=== PATIENT | female | born 1960 | race Caucasian/White ===

== ENCOUNTER → 2018-06-08 07:34 | Outpatient (CLI) | payer OTHER, SELFPAY ==
[2018-06-08 09:09] LABS: Alanine Aminotransferase 19 IU/L (9-52); Albumin 4.3 g/dL (3.5-5.0); Albumin Globulin Ratio 1.5 (1.0-2.8); Alkaline Phosphatase 60 U/L (38-126); Aspartate Aminotransferase 23 IU/L (14-36); BUN Creatinine Ratio 16.7 (6-22); Bilirubin Total 0.6 mg/dL (0.2-1.3); Blood Urea Nitrogen 10 mg/dL (7-17); Calcium 9.3 mg/dL (8.4-10.2); Carbon Dioxide 25 mmol/L (22-32); Chloride 105 mmol/L (98-107); Cholesterol 251 mg/dL (140-199); Estimated Glomerular Filt Rate > 60.0 mL/min (>60); Globulin 2.8 g/dL (1.7-4.1); Glucose 95 mg/dL (70-100); HDL Cholesterol 68 mg/dL (40-60); HEMOLYSIS < 15 (0-50); LDL Cholesterol Calculated 162 mg/dL (<100); Sodium 141 mmol/L (137-145); Total Protein 7.1 g/dL (6.3-8.2); Triglycerides 106 mg/dL (35-150)
[2018-06-08 15:45] LABS: Creatinine Urine Random 51.4 mg/dL
[2018-06-08 15:49] LABS: Microalbumi Creatinin Ratio Ur 11.6 ug/mg CR (<30); Microalbumin Urine Random < 0.6 mg/dL (0-1.6)
== END ==
PROVIDERS: PCP Physician Assistant; Visit Provider Physician Assistant
DX: I10 Essential (primary) hypertension (principal); E78.5 Hyperlipidemia, unspecified
CPT/HCPCS: 36415; 80053; 80061; 82043; 82570

== ENCOUNTER → 2018-08-19 12:07 | Outpatient (CLI) | payer OTHER, SELFPAY | PROVIDERS: PCP Physician Assistant | DX: Z23 Encounter for immunization (principal) | CPT/HCPCS: 90471; 90686 ==

== ENCOUNTER → 2018-08-26 07:57 | Outpatient (CLI) | payer OTHER, SELFPAY ==
[2018-08-26 09:46] LABS: Aspartate Aminotransferase 28 IU/L (14-36); Cholesterol 186 mg/dL (140-199); HDL Cholesterol 85 mg/dL (40-60); LDL Cholesterol Calculated 82 mg/dL (<100); Triglycerides 93 mg/dL (35-150)
== END ==
PROVIDERS: PCP Physician Assistant; Visit Provider Physician Assistant
DX: E78.5 Hyperlipidemia, unspecified (principal); Z82.49 Family history of ischemic heart disease and other diseases of the circulatory system
CPT/HCPCS: 36415; 80061; 81003; 84450

== ENCOUNTER 2018-10-07 06:53 | Day surgery (SDC) | payer OTHER, SELFPAY ==
--- NOTE | 2018-10-07 | PATH_ITS ---
[facility] Accession Number: [id number] . 01 Material submitted: . PART A: 70CM PART B: POLYP AT 60 . 01 Clinical history: . A: MUCOSAL IRREGULARITY AT 70CM . 02 Diagnosis: A. Colon, 70 cm, Irregularity, Biopsy: Tubular adenoma. . B. Colon, Polyp at 60 cm, Biopsy: Benign lymphoid aggregate. MRV/10/11/2018 . 02 Electronically signed: . Hilary Rizzo MD, Pathologist NPI- [id number] . 01 Gross description: . Received two formalin-filled containers both labeled with the patient's name. . A. In a container labeled mucosal irregularity at 70 cm are multiple fragments of tissue, which range in size from less than 0.1 cm to 0.5 cm. The specimen is filtered, wrapped and entirely submitted in cassette A. B. In a container labeled polyp at 60, source confirmed per client, the specimen consists of a less than 0.1 cm portion of tissue. Entirely submitted in cassette B. ([facility]:[id number]) /[facility] . 02 Pathologist provided ICD-10: D12.6 . 02 CPT . 584080, 195456 Specimen Comment: A duplicate report has been generated due to demographic updates. Performed at: 01 [facility] [address], [place], [place] [id number] MD Vivek Hicks MD Phone: [phone] Performed at: 02 [facility] [address] [place], [place] [id number] MD Hilary Rizzo MD Phone: [phone]
[2018-10-07 07:07] VITALS: BMI 28.0
[2018-10-07] MEDS: SODIUM CHLORIDE 0.9% 1,000 ML 21 ML IV (07:53)
[2018-10-07] MEDS: MIDAZOLAM 5 MG/5 ML VIAL IV (08:11)
[2018-10-07] MEDS: fentaNYL 250 MCG/5 ML INJ IV (08:13)
[2018-10-07 08:33] VITALS: BP 121/83; PULSE 66; RESP 10; O2SAT 96
--- NOTE | 2018-10-07 08:33 | PM.HP.1 ---
History of Present Illness Date Patient Seen: 10/07/18 Time Patient Seen: 07:33 Chief complaint: [id number] SCREENING COLONOSCOPY Narrative: 58-year-old lady presents for screening colonoscopy. She reports her last colonoscopy was 2006. She denies any new problems or symptoms related to the function of her GI tract reports that she needs a colonoscopy as part of the Health maintenance program. Patient History Medical History Hypertension (Chronic ~2014) Rosacea (Chronic Unknown) Colon polyps (Resolved 07/2006) Surgical History History of back surgery (Resolved Unknown) Hx of section (Resolved Unknown) History of tonsillectomy Family & Social History Family History: Reviewed 10/07/18 by Brittney Figueroa MD Social History: household members friend(s) Tobacco & Substance use: Smoking Status Never smoker alcohol intake current Meds Home Medications Medication Instructions Recorded Confirmed Type metoprolol succinate ER 50 mg 50 mg PO QDAY #90 tab 06/16/18 10/07/18 Rx tablet,extended release 24 hr atorvastatin 20 mg PO BEDTIME 10/07/18 10/07/18 History multivitamin 1 cap PO DAILY 10/07/18 10/07/18 History Allergies Allergy/AdvReac Type Severity Reaction Status Date / Time meperidine [MEPERIDINE] AdvReac Mild (DEMEROL) Verified 10/07/18 07:04 VOMITING Review of Systems Review of Systems All systems reviewed & are unremarkable except as noted in HPI and below Exam Vital Signs (past 8 hours): A pleasant well-nourished well-developed lady in no distress HEENT: Normocephalic and atraumatic, pupils equal round reactive to light accommodation with anicteric sclera Lungs: Clear bilaterally Heart: Regular rate and rhythm Abdomen: Soft, nontender, active bowel sounds Extremities: Warm and well-perfused without edema. Assessment & Plan Plan: Assessment/Plan Narrative: Healthy 58-year-old lady who presents for screening colonoscopy. We discussed the risks and benefits of the procedure the patient expressed desire to complete it today
--- NOTE | 2018-10-07 08:34 | PM.OP.1 ---
Operative Date/Time/Diagnoses Date of procedure: 10/07/18 Time of procedure: 08:35 Pre-op diagnosis: Screening Post-op diagnosis: same Procedure & Clinicians Procedure: Colonoscopy to the cecum with polypectomy x2 Same procedure as scheduled: Yes Indications: Last colonoscopy 2006 Surgeon: Brittney Figueroa Anesthesia Type: Sedation (Versed 6 mg; fentanyl 200 mcg) Operative Notes Findings: 1. Excellent prep 2. Flat polypoid lesion at 70 cm from the anal verge. One and 1/2 cm in diameter. The entire lesion was removed with cold forceps and submitted for pathology. The area was marked with [place] ink for later surveillance. 3. A 2nd flat polypoid lesion at 60 cm from the anal verge. This 1 was only approximately 4 mm in diameter and removed with cold forceps. 4. Minimal diverticulosis with just a few very small pockets seen in the sigmoid colon 5. Grade 2-3 internal hemorrhoids 6. Significantly decreased anal sphincter tone. Closure Type: not applicable Specimen(s): other (Polyps from 70 cm and 60 cm) Estimated Blood Loss (mL): 2 Procedure in detail: After obtaining informed consent, the patient was brought to the GI suite and placed in the left lateral decubitus position on the examination table. After placement of appropriate monitors, the patient was given incremental doses of Versed and Fentanyl until an appropriate level of sedation was achieved. A time out was held per SCOAP protocol. A digital rectal examination was performed and did not reveal any masses or obstructing lesions. The colonoscope was gently passed into the patient's anus and the entire colon navigated to the level of the cecum with minimal difficulty. Once in the cecum, the scope was withdrawn being sure to go before and beyond all mucosal folds and prominences and get an excellent examination. The findings are noted above. At the level of the rectal vault, the scope was retroflexed and the internal anal canal was examined. The scope was straightened and air aspirated from the colon. The instrument was removed from the patient's body and the procedure was concluded. The patient was allowed to awaken from sedation without difficulty and taken to the post-anesthesia care unit in good condition. Total sedation time 30 min Total withdrawal time 22 min Complications: none Condition: stable Disposition: PACU Plan for aftercare: 1. Discharge to home 2. Plan for next colonoscopy in 1-5 years depending upon pathology 3. We will contact you with final pathology results and further recommendations.
[2018-10-07 08:37] VITALS: PULSE 72; RESP 13; TEMP 36.2; O2SAT 99
[2018-10-07 08:44] VITALS: BP 113/79; PULSE 72; RESP 15; TEMP 36.6; O2SAT 100
--- NOTE | 2018-10-07 08:45 | SUR.PHASEI ---
stable pacu stay, to opd dr salomn spoke with shari at bedside.
[2018-10-07 09:04] VITALS: BP 118/70; PULSE 77; RESP 16; TEMP 36.6; O2SAT 99
--- NOTE | 2018-10-07 09:06 | SUR.PHASEII ---
called, report to eddie padilla.
[2018-10-07 09:16] VITALS: BP 117/80; PULSE 75; RESP 12; TEMP 36.8; O2SAT 100
== END 2018-10-07 09:26 | disposition home or self-care (01) ==
PROVIDERS: PCP Physician Assistant; Visit Provider Surgery
PROC: 0DJD8ZZ Inspection of Lower Intestinal Tract, Via Natural or Artificial Opening Endoscopic (ICD-10-PCS; CPT 45378; principal; 2018-10-07 07:45)
DX: Z12.11 Encounter for screening for malignant neoplasm of colon (principal); K57.30 Diverticulosis of large intestine without perforation or abscess without bleeding; K64.2 Third degree hemorrhoids; I10 Essential (primary) hypertension; D12.6 Benign neoplasm of colon, unspecified
CPT/HCPCS: 45381; 45380; 99152; 99153; J2250; J3010

== ENCOUNTER → 2018-12-23 07:38 | Outpatient (CLI) | payer OTHER, SELFPAY ==
--- NOTE | 2018-12-23 07:39 | DI.MG.S_ITS ---
BILATERAL DIGITAL SCREENING MAMMOGRAM 3D/2D WITH CAD: 12/23/2018 CLINICAL: Routine screening. Family history of breast cancer. Comparison is made to exams dated: 01/28/2017 mammogram, 07/05/2014 mammogram, and 02/19/2011 mammogram - [facility]. The tissue of both breasts is heterogeneously dense. This may lower the sensitivity of mammography. Current study was also evaluated with a Computer Aided Detection (CAD) system. There are benign calcifications in both breasts. No significant masses, calcifications, or other findings are seen in either breast. There has been no significant interval change. IMPRESSION: There is no mammographic evidence of malignancy. A 1 year screening mammogram is recommended. This exam was interpreted at Station ID: [id number]. NOTE: For mammograms, a report in lay terms will be sent to the patient. Approximately 15% of breast malignancies will not be visualized mammographically. In the management of a palpable breast mass, a negative mammogram must not discourage biopsy of a clinically suspicious lesion. Electronically Signed By: Rafita arrington/mickey:12/23/2018 08:39:36 letter sent: Normal Exam ACR BI-RADS Category 2: Benign Finding(s) 3342F
== END ==
PROVIDERS: PCP Physician Assistant; Visit Provider Physician Assistant
DX: Z12.31 Encounter for screening mammogram for malignant neoplasm of breast (principal); Z80.3 Family history of malignant neoplasm of breast
CPT/HCPCS: 77063; 77067

== ENCOUNTER → 2019-03-03 07:29 | Outpatient (CLI) | payer OTHER, SELFPAY ==
[2019-03-03 08:20] LABS: Blood Urea Nitrogen 12 mg/dL (7-17); Calcium 9.6 mg/dL (8.4-10.2); Carbon Dioxide 26 mmol/L (22-32); Chloride 104 mmol/L (98-107); Estimated Glomerular Filt Rate > 60.0 mL/min (>60); Glucose 93 mg/dL (70-100); HEMOLYSIS < 15 (0-50); Potassium 4.1 mmol/L (3.4-5.1); Sodium 139 mmol/L (137-145)
== END ==
PROVIDERS: PCP Physician Assistant; Visit Provider Physician Assistant
DX: I10 Essential (primary) hypertension (principal)
CPT/HCPCS: 36415; 80048

== ENCOUNTER → 2019-08-09 08:09 | Outpatient (CLI) | payer OTHER, SELFPAY ==
[2019-08-09 10:32] LABS: Creatinine Urine Random 64.7 mg/dL
[2019-08-09 10:42] LABS: Microalbumi Creatinin Ratio Ur 9.2 ug/mg CR (<30); Microalbumin Urine Random < 0.6 mg/dL (0-1.6)
[2019-08-09 10:43] LABS: Alanine Aminotransferase 25 IU/L (9-52); Albumin 4.6 g/dL (3.5-5.0); Albumin Globulin Ratio 1.7 (1.0-2.8); Alkaline Phosphatase 75 U/L (38-126); Aspartate Aminotransferase 31 IU/L (14-36); BUN Creatinine Ratio 16.7 (6-22); Bilirubin Total 0.8 mg/dL (0.2-1.3); Blood Urea Nitrogen 10 mg/dL (7-17); Calcium 9.9 mg/dL (8.4-10.2); Carbon Dioxide 27 mmol/L (22-32); Chloride 101 mmol/L (98-107); Cholesterol 215 mg/dL (140-199); Estimated Glomerular Filt Rate > 60.0 mL/min (>60); Globulin 2.7 g/dL (1.7-4.1); Glucose 94 mg/dL (80-110); HDL Cholesterol 85 mg/dL (40-60); HEMOLYSIS < 15 (0-50); LDL Cholesterol Calculated 109 mg/dL (<100); Potassium 4.3 mmol/L (3.4-5.1); Sodium 140 mmol/L (137-145); Total Protein 7.3 g/dL (6.3-8.2); Triglycerides 107 mg/dL (35-150)
== END ==
PROVIDERS: PCP Physician Assistant; Visit Provider Physician Assistant
DX: G43.109 Migraine with aura, not intractable, without status migrainosus (principal); I10 Essential (primary) hypertension
CPT/HCPCS: 36415; 80053; 80061; 82043; 82570

== ENCOUNTER → 2019-08-18 08:17 | Outpatient (CLI) | payer OTHER, SELFPAY ==
--- NOTE | 2019-08-18 08:18 | DI.MRI.S_ITS ---
PROCEDURE: MR HEAD/BRAIN WO CON INDICATIONS: Sudden onset headache w/weakness, hx of migraines TECHNIQUE: Noncontrast axial T1 spin echo, axial T2 fast spin echo, sagittal and axial FLAIR, coronal T2 fast spin echo, axial gradient echo, axial diffusion and ADC through the brain. COMPARISON: None. FINDINGS: Image quality: Excellent. CSF Spaces: Basal cisterns are patent. No extra-axial fluid collections. Ventricles are normal in size and shape. Brain: No intracranial masses or hemorrhage. Short/white matter interface is normal. Brainstem appears normal. Diffusion-weighted images demonstrate no acute ischemic insult. No chronic ischemic insults. Normal intravascular flow voids are present. Skull and face: Calvarium has normal marrow signal. Orbits appear normal. Sinuses: Sinuses and mastoids are clear. IMPRESSION: Normal brain MRI. Dictated by: Javon Morgan M.D. on 08/18/2019 at 9:14 Approved by: Javon Morgan M.D. on 08/18/2019 at 10:55
== END ==
PROVIDERS: PCP Physician Assistant; Visit Provider Physician Assistant
DX: G43.109 Migraine with aura, not intractable, without status migrainosus (principal); R53.1 Weakness; R55 Syncope and collapse; I10 Essential (primary) hypertension
CPT/HCPCS: 70551

== ENCOUNTER → 2019-08-18 15:46 | Outpatient (CLI) | payer OTHER, SELFPAY | PROVIDERS: PCP Physician Assistant | DX: Z23 Encounter for immunization (principal) | CPT/HCPCS: 90471; 90686 ==

== ENCOUNTER → 2020-09-11 03:44 | Outpatient (CLI) | payer OTHER, SELFPAY | PROVIDERS: PCP Physician Assistant; Referring Provider Internal Medicine; Visit Provider Internal Medicine | DX: Z23 Encounter for immunization (principal) | CPT/HCPCS: 90471; 90686 ==

== ENCOUNTER → 2020-11-09 08:01 | Outpatient (CLI) | payer OTHER, SELFPAY ==
[2020-11-09 09:16] LABS: Add Manual Diff / Slide Review NO; Basophils Absolute Auto 0 /uL (0-100); Basophils Percent Auto 0.6 % (0-2); Eosinophils Absolute Auto 0 /uL (0-450); Eosinophils Percent Auto 0.3 % (2-4); Hematocrit 39.3 % (36-46); Hemoglobin 13.4 g/dL (12.0-16.0); Lymphocytes Absolute Auto 1200 /uL (1100-4500); Lymphocytes Percent Auto 23.2 % (25-40); Mean Corpuscular Hemoglobin 33.6 PG (26-34); Monocytes Absolute Auto 500 /uL (0-900); Neutrophils Absolute Auto 3500 /uL (1500-7000); Neutrophils Percent Auto 65.9 % (50-75); Platelet Count 268 X10^3/uL (150-400); Red Blood Cell Count 3.97 X10^6/uL (4.0-5.2); Red Cell Distribution Width 12.2 % (11.6-14.8); White Blood Cell Count 5.4 X10^3/uL (4.5-11.0)
[2020-11-09 09:49] LABS: Alanine Aminotransferase 19 IU/L (<35); Albumin 4.2 g/dL (3.5-5.0); Albumin Globulin Ratio 1.4 (1.0-2.8); Alkaline Phosphatase 81 U/L (38-126); Aspartate Aminotransferase 29 IU/L (14-36); BUN Creatinine Ratio 14.3 (6-22); Bilirubin Total 0.5 mg/dL (0.2-1.3); Blood Urea Nitrogen 9 mg/dL (7-17); Calcium 9.5 mg/dL (8.4-10.2); Carbon Dioxide 27 mmol/L (22-32); Chloride 103 mmol/L (98-107); Cholesterol 181 mg/dL (140-199); Estimated Glomerular Filt Rate > 60.0 mL/min (>60); Globulin 2.9 g/dL (1.7-4.1); Glucose 101 mg/dL (80-110); HDL Cholesterol 77 mg/dL (40-60); HEMOLYSIS < 15 (0-50); LDL Cholesterol Calculated 90 mg/dL (<100); Potassium 4.2 mmol/L (3.4-5.1); Sodium 136 mmol/L (137-145); Total Protein 7.1 g/dL (6.3-8.2); Triglycerides 69 mg/dL (35-150)
[2020-11-09 10:14] LABS: TSH w/ Reflex to FT4 1.17 uIU/mL (0.47-4.68)
== END ==
PROVIDERS: PCP Registered Nurse Diabetes Educator; Referring Provider Registered Nurse Diabetes Educator; Visit Provider Registered Nurse Diabetes Educator
DX: E78.5 Hyperlipidemia, unspecified (principal); I10 Essential (primary) hypertension
CPT/HCPCS: 36415; 80053; 80061; 84443; 85025

== ENCOUNTER → 2020-11-29 10:31 | Outpatient (CLI) | payer OTHER, SELFPAY ==
[2020-11-29] MEDS: COVID-19 VACC(MODERNA-1)/PF 100 MCG/0.5 ML VIAL IM (10:41)
== END ==
PROVIDERS: PCP Registered Nurse Diabetes Educator; Visit Provider Internal Medicine
DX: Z23 Encounter for immunization (principal)
CPT/HCPCS: 0011A; 91301

== ENCOUNTER → 2020-12-26 07:50 | Outpatient (CLI) | payer OTHER, SELFPAY ==
[2020-12-26] MEDS: COVID-19 VACC #2, MRNA(MOD) 100 MCG/0.5 ML VIAL IM (07:56)
== END ==
PROVIDERS: PCP Registered Nurse Diabetes Educator; Visit Provider Internal Medicine
DX: Z23 Encounter for immunization (principal)
CPT/HCPCS: 0012A; 91301

== ENCOUNTER → 2021-03-25 08:17 | Outpatient (CLI) | payer OTHER, SELFPAY ==
--- NOTE | 2021-03-25 08:18 | DI.MG.S_ITS ---
BILATERAL DIGITAL SCREENING MAMMOGRAM 3D/2D WITH CAD: 03/25/2021 CLINICAL: Routine screening. Family history of breast cancer. Comparison is made to exams dated: 12/23/2018 mammogram, 01/28/2017 mammogram, and 07/05/2014 mammogram - [facility]. The tissue of both breasts is heterogeneously dense. This may lower the sensitivity of mammography. Current study was also evaluated with a Computer Aided Detection (CAD) system. There is possible new architectural distortion with linear fine pleomorphic calcifications in the right breast at 5 o'clock anterior depth. No other significant masses, calcifications, or other findings are seen in either breast. IMPRESSION: INCOMPLETE: NEEDS ADDITIONAL IMAGING EVALUATION Possible new architectural distortion with associated microcalcifications in the right breast. Additional views with possible ultrasound are recommended. This exam was interpreted at Station ID: [id number]. NOTE: For mammograms, a report in lay terms will be sent to the patient. Approximately 15% of breast malignancies will not be visualized mammographically. In the management of a palpable breast mass, a negative mammogram must not discourage biopsy of a clinically suspicious lesion. Electronically Signed By: Magan Rees M.D. jr/:03/25/2021 08:46:03 letter sent: Additional Imaging Needed ACR BI-RADS Category 0: Incomplete 3340F
== END ==
PROVIDERS: PCP Registered Nurse Diabetes Educator; Referring Provider Registered Nurse Diabetes Educator; Visit Provider Registered Nurse Diabetes Educator
DX: Z12.31 Encounter for screening mammogram for malignant neoplasm of breast (principal); Z80.3 Family history of malignant neoplasm of breast
CPT/HCPCS: 77063; 77067

== ENCOUNTER → 2021-03-28 14:15 | Outpatient (CLI) | payer OTHER, SELFPAY ==
--- NOTE | 2021-03-28 14:16 | DI.MG.S_ITS ---
UNILATERAL RIGHT DIGITAL DIAGNOSTIC MAMMOGRAM 3D/2D WITH ADDITIONAL VIEWS: 03/28/2021 CLINICAL: Additional evaluation requested from prior study. Comparison is made to exams dated: 03/25/2021 mammogram, 12/23/2018 mammogram, and 01/28/2017 mammogram - [facility]. The tissue of right breast is heterogeneously dense. This may lower the sensitivity of mammography. The previously described possible architectural distortion with linear fine pleomorphic calcifications in the right breast at 5 o'clock anterior depth is not reproduced and presumably represented superimposed breast tissue. No other significant masses or calcifications are seen in the breast. IMPRESSION: INCOMPLETE: NEEDS ADDITIONAL IMAGING EVALUATION The previously described possible architectural distortion with linear fine pleomorphic calcifications in the right breast at 5 o'clock anterior depth is not reproduced and presumably represented superimposed breast tissue. However, given it's retroareolar location, an ultrasound is scheduled immediately following this exam to confirm. This exam was interpreted at Station ID: [id number]. NOTE: For mammograms, a report in lay terms will be sent to the patient. Approximately 15% of breast malignancies will not be visualized mammographically. In the management of a palpable breast mass, a negative mammogram must not discourage biopsy of a clinically suspicious lesion. Electronically Signed By: Rafita Yepez M.D. aty/:03/28/2021 15:20:57 ACR BI-RADS Category 0: Incomplete 3340F
--- NOTE | 2021-03-28 14:16 | DI.US.S_ITS ---
ULTRASOUND OF RIGHT BREAST: 03/28/2021 CLINICAL: Patient returns today to evaluate a focal asymmetry in the right breast. Comparison is made to exams dated: 03/28/2021 mammogram, 03/25/2021 mammogram, 12/23/2018 mammogram, 01/28/2017 mammogram, 07/05/2014 mammogram, and 08/07/2008 mammogram - [facility]. Real-time ultrasound of the right breast was performed. Short scale images of the real-time examination were reviewed. No significant abnormalities were seen sonographically in the right breast. IMPRESSION: NEGATIVE There is no sonographic evidence of malignancy. There is no abnormality seen in the right breast to correspond with the now resolved mammography finding described in report from mammographic evaluation earlier today in the sub-areolar/anterior depth. A 1 year screening mammogram is recommended. Findings and recommendations were conveyed to the patient during today's evaluation. This exam was interpreted at Station ID: [id number]. Electronically Signed By: Rafita Yepez M.D. at/:03/28/2021 15:48:20 letter sent: Normal Exam Ultrasound BI-RADS: 1 Negative
== END ==
PROVIDERS: PCP Registered Nurse Diabetes Educator; Referring Provider Registered Nurse Diabetes Educator; Visit Provider Registered Nurse Diabetes Educator
DX: R92.8 Other abnormal and inconclusive findings on diagnostic imaging of breast (principal)
CPT/HCPCS: 76642; 77065; G0279

== ENCOUNTER → 2021-10-03 19:07 | Outpatient (CLI) | payer OTHER, SELFPAY | PROVIDERS: PCP Registered Nurse Diabetes Educator; Referring Provider Internal Medicine; Visit Provider Internal Medicine | DX: Z23 Encounter for immunization (principal) | CPT/HCPCS: 90471; 90686 ==

== ENCOUNTER → 2022-02-28 08:10 | Outpatient (CLI) | payer OTHER, SELFPAY ==
[2022-02-28 09:09] LABS: Hematocrit 37.1 % (36-46); Mean Corpuscular HGB Conc 35.1 % (30-36); Mean Corpuscular Hemoglobin 33.9 PG (26-34); Mean Corpuscular Volume 96.6 fL (80-100); Platelet Count 273 X10^3/uL (150-400); Red Blood Cell Count 3.85 X10^6/uL (4.0-5.2); Red Cell Distribution Width 12.4 % (11.6-14.8); White Blood Cell Count 4.9 X10^3/uL (4.5-11.0)
[2022-02-28 09:23] LABS: Alanine Aminotransferase 19 IU/L (<35); Albumin 4.4 g/dL (3.5-5.0); Albumin Globulin Ratio 1.6 (1.0-2.8); Alkaline Phosphatase 77 U/L (38-126); Aspartate Aminotransferase 29 IU/L (14-36); BUN Creatinine Ratio 14.1 (6-22); Bilirubin Total 0.6 mg/dL (0.2-1.3); Blood Urea Nitrogen 9 mg/dL (7-17); Calcium 9.4 mg/dL (8.4-10.2); Carbon Dioxide 26 mmol/L (22-32); Chloride 105 mmol/L (98-107); Cholesterol 181 mg/dL (140-199); Estimated Glomerular Filt Rate > 60.0 mL/min (>60); Globulin 2.7 g/dL (1.7-4.1); Glucose 100 mg/dL (80-110); HDL Cholesterol 76 mg/dL (40-60); HEMOLYSIS < 15 (0-50); LDL Cholesterol Calculated 85 mg/dL (<100); Potassium 4.5 mmol/L (3.4-5.1); Sodium 140 mmol/L (137-145); Total Protein 7.1 g/dL (6.3-8.2); Triglycerides 98 mg/dL (35-150)
[2022-02-28 09:47] LABS: TSH w/ Reflex to FT4 1.38 uIU/mL (0.47-4.68)
== END ==
PROVIDERS: PCP Registered Nurse Diabetes Educator; Referring Provider Registered Nurse Diabetes Educator; Visit Provider Registered Nurse Diabetes Educator
DX: E78.5 Hyperlipidemia, unspecified (principal); I10 Essential (primary) hypertension; R73.01 Impaired fasting glucose
CPT/HCPCS: 36415; 80053; 80061; 84443; 85027

== ENCOUNTER → 2022-10-06 13:21 | Outpatient (CLI) | payer OTHER, SELFPAY | PROVIDERS: PCP Registered Nurse Diabetes Educator; Referring Provider Internal Medicine; Visit Provider Internal Medicine | DX: Z23 Encounter for immunization (principal) | CPT/HCPCS: 90471; 90686 ==

== ENCOUNTER → 2022-10-28 08:13 | Outpatient (CLI) | payer OTHER, SELFPAY ==
--- NOTE | 2022-10-28 | DI.MG.S_ITS ---
BILATERAL DIGITAL SCREENING MAMMOGRAM 3D/2D WITH CAD: 10/28/2022 CLINICAL: Routine screening. Family history of breast cancer. Comparison is made to exams dated: 03/25/2021 mammogram, 12/23/2018 mammogram, and 01/28/2017 mammogram - [facility]. Both breasts are heterogeneously dense, which may obscure small masses (category c / 51-75% glandular tissue). Current study was also evaluated with a Computer Aided Detection (CAD) system. No significant masses, calcifications, or other findings are seen in either breast. There has been no significant interval change. IMPRESSION: NEGATIVE There is no mammographic evidence of malignancy. A 1 year screening mammogram is recommended. Based on Tyrer-Cuzick model (a risk assessment model), the patient's lifetime risk is 22.8% and her 10 year risk is 10.7%. If a patient has an elevated risk, a more comprehensive evaluation should be considered and/or a referral to a genetic counselor. The [place] [employer], [employer] [place] [employer], and NCCN Guidelines advise the consideration of Breast MRI as an adjunct to screening mammography in patients whose Lifetime risk to develop breast cancer is 20% or higher. This exam was interpreted at Station ID: [id number]. NOTE: For mammograms, a report in lay terms will be sent to the patient. Approximately 15% of breast malignancies will not be visualized mammographically. In the management of a palpable breast mass, a negative mammogram must not discourage biopsy of a clinically suspicious lesion. Electronically Signed By: Rick priest/mickey:10/28/2022 09:11:35 letter sent: Normal Exam ACR BI-RADS Category 1: Negative 3341F
== END ==
PROVIDERS: PCP Registered Nurse Diabetes Educator; Referring Provider Registered Nurse Diabetes Educator; Visit Provider Registered Nurse Diabetes Educator
DX: Z12.31 Encounter for screening mammogram for malignant neoplasm of breast (principal); Z80.3 Family history of malignant neoplasm of breast
CPT/HCPCS: 77063; 77067

== ENCOUNTER → 2023-04-06 11:54 | Outpatient (CLI) | payer OTHER, SELFPAY | PROVIDERS: PCP Registered Nurse Diabetes Educator; Visit Provider Nurse Practitioner Family | DX: J02.9 Acute pharyngitis, unspecified (principal) | CPT/HCPCS: 87070; 87077; 87185 ==

== ENCOUNTER → 2023-07-15 07:37 | Outpatient (CLI) | payer OTHER, SELFPAY ==
[2023-07-15 09:29] LABS: Hematocrit 39.7 % (36-46); Hemoglobin 13.7 g/dL (12.0-16.0); Mean Corpuscular HGB Conc 34.5 % (30-36); Mean Corpuscular Hemoglobin 33.5 PG (26-34); Mean Corpuscular Volume 97.1 fL (80-100); Platelet Count 330 X10^3/uL (150-400); Red Blood Cell Count 4.09 X10^6/uL (4.0-5.2); Red Cell Distribution Width 13.4 % (11.6-14.8); White Blood Cell Count 6.4 X10^3/uL (4.5-11.0)
[2023-07-15 09:49] LABS: Alanine Aminotransferase 19 IU/L (<35); Albumin 4.4 g/dL (3.5-5.0); Albumin Globulin Ratio 1.4 (1.0-2.8); Alkaline Phosphatase 93 U/L (38-126); Aspartate Aminotransferase 27 IU/L (14-36); BUN Creatinine Ratio 12.7 (6-22); Bilirubin Total 0.6 mg/dL (0.2-1.3); Blood Urea Nitrogen 7 mg/dL (7-17); Calcium 9.1 mg/dL (8.4-10.2); Carbon Dioxide 24 mmol/L (22-32); Chloride 103 mmol/L (98-107); Cholesterol 188 mg/dL (140-199); Estimated Glomerular Filt Rate > 60 mL/min (>60); Globulin 3.2 g/dL (1.7-4.1); Glucose 92 mg/dL (80-110); HDL Cholesterol 67 mg/dL (40-60); HEMOLYSIS 16 (0-50); LDL Cholesterol Calculated 97 mg/dL (<100); Potassium 3.8 mmol/L (3.4-5.1); Sodium 138 mmol/L (137-145); Total Protein 7.6 g/dL (6.3-8.2); Triglycerides 120 mg/dL (35-150)
[2023-07-15 10:24] LABS: TSH w/ Reflex to FT4 1.63 uIU/mL (0.47-4.68)
== END ==
PROVIDERS: PCP Registered Nurse Diabetes Educator; Referring Provider Registered Nurse Diabetes Educator; Visit Provider Registered Nurse Diabetes Educator
DX: E78.5 Hyperlipidemia, unspecified (principal); I10 Essential (primary) hypertension; R73.01 Impaired fasting glucose
CPT/HCPCS: 36415; 80053; 80061; 84443; 85027

== ENCOUNTER → 2023-10-23 11:53 | Outpatient (CLI) | payer OTHER, SELFPAY | PROVIDERS: PCP Registered Nurse Diabetes Educator; Referring Provider Family Medicine; Visit Provider Family Medicine | DX: Z23 Encounter for immunization (principal) | CPT/HCPCS: 90471; 90686 ==

== ENCOUNTER → 2024-01-07 07:50 | Outpatient (CLI) | payer OTHER, SELFPAY ==
--- NOTE | 2024-01-07 | DI.MG.S_ITS ---
BILATERAL DIGITAL SCREENING MAMMOGRAM 3D/2D WITH CAD: 01/07/2024 CLINICAL: Routine screening. Family history of breast cancer. Comparison is made to exams dated: 10/28/2022 mammogram, 03/28/2021 mammogram, 03/25/2021 mammogram, and 12/23/2018 mammogram - [facility]. Both breasts are heterogeneously dense, which may obscure small masses (category c / 51-75% glandular tissue). Current study was also evaluated with a Computer Aided Detection (CAD) system. No significant masses, calcifications, or other findings are seen in either breast. There has been no significant interval change. IMPRESSION: NEGATIVE There is no mammographic evidence of malignancy. A 1 year screening mammogram is recommended. Based on Tyrer-Cuzick model (a risk assessment model), the patient's lifetime risk is 22.1% and her 10 year risk is 10.7%. If a patient has an elevated risk, a more comprehensive evaluation should be considered and/or a referral to a genetic counselor. The [place] [employer], [place] [employer], and NCCN Guidelines advise the consideration of Breast MRI as an adjunct to screening mammography in patients whose Lifetime risk to develop breast cancer is 20% or higher. This exam was interpreted at Station ID: [id number]. NOTE: For mammograms, a report in lay terms will be sent to the patient. Approximately 15% of breast malignancies will not be visualized mammographically. In the management of a palpable breast mass, a negative mammogram must not discourage biopsy of a clinically suspicious lesion. Electronically Signed By: Chaz Tam M.D. lc/:01/07/2024 11:59:32 letter sent: Normal Exam ACR BI-RADS Category 1: Negative 3341F
== END ==
LOC: MAMMO 07:50
PROVIDERS: PCP Registered Nurse Diabetes Educator; Referring Provider Registered Nurse Diabetes Educator; Visit Provider Registered Nurse Diabetes Educator
DX: Z12.31 Encounter for screening mammogram for malignant neoplasm of breast (principal); Z80.3 Family history of malignant neoplasm of breast; R92.333 Mammographic heterogeneous density, bilateral breasts
CPT/HCPCS: 77063; 77067

== ENCOUNTER 2024-04-14 09:48 | Day surgery (SDC) | payer OTHER, SELFPAY ==
--- NOTE | 2024-04-14 | PATH_ITS ---
[facility] Accession Number: [id number] No. of containers..01 Tissue . 01 Material submitted: . colon - ASCENDING MASS . 01 Diagnosis: ASCENDING MASS: 1. 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 2. No lymphovascular or perineural invasion identified. See comment. . Specimen Comments: These results were called to Dr. Borden by Dr. Hicks on 04/19/2024 at 1040. This case has also been reviewed by Dr. Gonzalo Vaughn, who concurs. . Immunohistochemical staining for markers of microsatellite instability (MSI) will be performed, and the results will be reported as an addendum. [facility] 04/19/2024 1148 Local . 01 Electronically signed: . Vivek Hicks MD, Pathologist NPI- [id number] . 01 Gross description: . Received in formalin with two identifiers and ascending colon mass, are multiple melendez soft tissue fragments aggregating to 2.3 x 2.2 x 0.3 cm. Filtered and submitted entirely in A1. (AG:[id number]) /MRV 04/19/2024 1148 Local . 01 Pathologist provided ICD-10: C18.2 . 01 CPT . 049629, X22564, Q22536 Specimen Comment: A courtesy copy of this report has been sent to [phone] Performed at: [address] [id number] MD Vivek Hicks MD Phone: [phone]
[2024-04-14 10:10] VITALS: BP 128/88; PULSE 79; RESP 16; TEMP 36.6; O2SAT 98
[2024-04-14] MEDS: LACTATED RINGERS 1,000 ML 42 ML IV (10:11)
--- NOTE | 2024-04-14 10:26 | P.HP_ITS ---
History of Present Illness History of Present Illness Date Patient Seen: 04/14/24 Time Patient Seen: 10:26 Chief complaint: Screening Colonoscopy Narrative: Marisol is a 63-year-old woman who is here for colonoscopy. Her last colonoscopy was in [address] Figueroa and some polyps were removed, at least 1 of which was a tubular adenoma. She has no first-degree family members with colon cancer. [facility] Medical History Actinic keratosis Colon polyps (07/2006) Hypertension (~2014) Impaired fasting blood sugar Rosacea (Unknown) Surgical History History of back surgery (Unknown) History of tonsillectomy Hx of section (Unknown) Family History Brother CAD (coronary artery disease) Mother Breast cancer Grandmother Colon cancer Sister Diabetes mellitus Social History household members: friend(s) Smoking Status: Never smoker second hand exposure: No alcohol intake: current substance use type: does not use Meds Home Medications and Allergies Home Medications Medication Instructions Recorded Confirmed Type multivitamin 1 cap PO DAILY 10/07/18 04/14/24 History atorvastatin 20 mg tablet 20 mg PO BEDTIME #90 tabs 07/23/23 04/14/24 Rx metoprolol succinate 100 mg 100 mg PO DAILY #90 tabs 01/26/24 04/14/24 Rx tablet,extended release 24 hr sodium,potassium,mag sulfates 17.5 See Rx Instructions PO .COMPLEX 03/25/24 Rx gram-3.13 gram-1.6 gram oral soln #354 mL (Suprep Bowel Prep Kit) Allergies Allergy/AdvReac Type Severity Reaction Status Date / Time meperidine [MEPERIDINE] AdvReac Mild (DEMEROL) Verified 04/14/24 10:09 VOMITING Exam Vital Signs (past 8 hours): - 04/14/24 10:10 Temperature 97.8 F Pulse Rate 79 Respiratory Rate 16 Blood Pressure 128/88 Pulse Oximetry 98 Oxygen Delivery Method Room Air Oxygen Delivery Method Room Air Const General: healthy appearing Resp Effort & Inspection: normal respiratory effort Assessment & Plan Assessment and plan (1) History of colon polyps: Status: Acute Plan We discussed the risks and benefits of colonoscopy for history of polyps and she would like to proceed.
[2024-04-14 11:15] VITALS: BP 116/75; PULSE 77; RESP 15; TEMP 36.1; O2SAT 97
--- NOTE | 2024-04-14 11:15 | PM.OP.COLON ---
Operative Date/Time/Diagnoses Date of procedure: 04/14/24 Time of procedure: 11:15 Pre-op diagnosis: History of polyps Post-op diagnosis: same Procedure & Clinicians Study performed: Colonoscopy Same procedure as scheduled: Yes Surgeon: Manoj Borden Procedure Notes Procedure in detail: Surgeon: Manoj Borden MD Anesthesia: Janis Agosto MD Procedure: The patient was brought to the endoscopy suite, placed in left lateral decubitus position. The patient was connected to monitoring devices. A time-out was performed. Sedation was administered. Once the patient was adequately sedated, a digital rectal exam was performed and was normal. The scope was then inserted and advanced to the proximal colon. It appeared that there was a large circumferential fungating mass in the ascending colon, probably near the hepatic flexure. It was not felt to be safe to advance past the mass because it was hard to positively identify the lumen. Several large fragments of the mass were removed with a hot snare. Tattoo ink was then injected just distal to the mass in what is thought to be the proximal transverse colon. There was also old tattoo ink in the mid transverse colon but no polyps identified there. The remainder of the colon was normal. The patient did produce a full-thickness rectal prolapse while she was coughing during the withdrawal. It was not possible to retroflex in the rectum because of the rectal prolapse protruding. The scope was straightened and removed. The patient was awakened and brought to recovery. Scope withdrawal time: Not applicable as we never reached the cecum Sedation time: 28 minutes EBL: 5 mL Findings: Ascending colon mass and full-thickness rectal prolapse Post-procedure Disposition: PACU
[2024-04-14 11:21] VITALS: BP 122/61; PULSE 76; RESP 19; O2SAT 96
[2024-04-14 11:26] VITALS: BP 118/70; PULSE 69; RESP 16; O2SAT 98
[2024-04-14 11:30] VITALS: BP 125/79; PULSE 67; RESP 15; O2SAT 97
== END 2024-04-14 11:47 | disposition home or self-care (01) ==
PROVIDERS: PCP Registered Nurse Diabetes Educator; Referring Provider Surgery; Visit Provider Surgery
PROC: 0DJD8ZZ Inspection of Lower Intestinal Tract, Via Natural or Artificial Opening Endoscopic (ICD-10-PCS; CPT 45378; principal; 2024-04-14 10:45)
DX: Z12.11 Encounter for screening for malignant neoplasm of colon (principal); Z86.010 Personal history of colon polyps; K62.2 Anal prolapse; K63.89 Other specified diseases of intestine; C18.2 Malignant neoplasm of ascending colon
CPT/HCPCS: 45381; 45385; 80053; 82378; 85025; J2704

== ENCOUNTER → 2024-04-14 11:51 | Outpatient (CLI) | payer OTHER, SELFPAY ==
[2024-04-14 12:52] LABS: Add Manual Diff / Slide Review NO; Basophils Absolute Auto 0 /uL (0-100); Basophils Percent Auto 0.3 % (0-2); Eosinophils Absolute Auto 100 /uL (0-450); Hematocrit 33.6 % (36-46); Hemoglobin 11.3 g/dL (12.0-16.0); Lymphocytes Absolute Auto 1400 /uL (1100-4500); Lymphocytes Percent Auto 11.3 % (25-40); Mean Corpuscular HGB Conc 33.4 % (30-36); Mean Corpuscular Hemoglobin 30.2 PG (26-34); Mean Corpuscular Volume 90.2 fL (80-100); Monocytes Absolute Auto 800 /uL (0-900); Monocytes Percent Auto 6.5 % (3-14); Neutrophils Absolute Auto 9800 /uL (1500-7000); Neutrophils Percent Auto 80.9 % (50-75); Platelet Count 474 X10^3/uL (150-400); Red Blood Cell Count 3.73 X10^6/uL (4.0-5.2); Red Cell Distribution Width 13.4 % (11.6-14.8); White Blood Cell Count 12.1 X10^3/uL (4.5-11.0)
[2024-04-14 13:18] LABS: Alanine Aminotransferase 17 IU/L (<35); Albumin 4.1 g/dL (3.5-5.0); Albumin Globulin Ratio 1.4 (1.0-2.8); Alkaline Phosphatase 105 U/L (38-126); Aspartate Aminotransferase 30 IU/L (14-36); BUN Creatinine Ratio 9.6 (6-22); Bilirubin Total 0.7 mg/dL (0.2-1.3); Blood Urea Nitrogen 5 mg/dL (7-17); Calcium 8.9 mg/dL (8.4-10.2); Carbon Dioxide 23 mmol/L (22-32); Chloride 106 mmol/L (98-107); Estimated Glomerular Filt Rate > 60 mL/min (>60); Globulin 2.9 g/dL (1.7-4.1); Glucose 102 mg/dL (80-110); HEMOLYSIS 28 (0-50); Potassium 4.1 mmol/L (3.4-5.1); Sodium 137 mmol/L (137-145)
== END ==
PROVIDERS: PCP Registered Nurse Diabetes Educator; Referring Provider Surgery; Visit Provider Surgery
DX: K63.89 Other specified diseases of intestine (principal)
CPT/HCPCS: 80053; 82378; 85025

== ENCOUNTER → 2024-04-15 07:34 | Outpatient (CLI) | payer OTHER, SELFPAY ==
--- NOTE | 2024-04-15 07:35 | DI.CT.S_ITS ---
PROCEDURE: CT CHEST ABD PEL W CON INDICATIONS: colon mass TECHNIQUE: After the administration of intravenous contrast, 5 mm thick sections acquired from the lung apices to the symphysis. 5 mm coronal and sagittal reformats were performed, with additional 7 mm MIP reformats through the lungs. For radiation dose reduction, the following was used: automated exposure control, adjustment of mA and/or kV according to patient size. COMPARISON: None. FINDINGS: Image quality: Excellent. CHEST: Lower Neck: No enlarged lymph nodes. Thyroid: No thyroid nodules which require sonographic follow up, per consensus guidelines. Axillae: No enlarged lymph nodes. Chest Wall: Unremarkable. Lungs and Pleura: No pneumothorax or pleural effusions. 7 x 9 millimeter part solid nodule with a 2 millimeters solid component in the right lower lobe (series 5, image 147). Heart: Heart size is normal. No pericardial effusion. Thoracic Vessels: The aorta and pulmonary arteries demonstrate normal size. Mediastinum and Kell: No enlarged lymph nodes. Esophagus: No wall thickening. No hiatal hernia. ABDOMEN: Liver: No solid mass. Gallbladder: No radiopaque gallstones or wall thickening. Biliary ducts: No biliary dilation. Pancreas: No ductal dilation. Spleen: Size is within normal limits. Adrenal Glands: No adrenal nodules. Kidneys and Ureters: No hydronephrosis. No solid mass. No complex renal cystic lesion which requires follow up. Stomach and Bowel: 6.8 centimeter segment ascending colonic wall thickening. This does not appear obstructive as there is fecal debris within the more distal large bowel. Peritoneum: No abnormal intraperitoneal fluid. No free air. Ventral Wall: No significant ventral hernia. Small umbilical hernia containing fat. Abdominal Nodes: Enlarged and rounded mesenteric lymph nodes adjacent to the mass, as well as a prominent central mesenteric node measuring 6 x 8 millimeters (series 2, image 59). Vessels: Aorta and inferior vena cava are normal in size. PELVIS: Pelvic Organs: Unremarkable. Bladder: No bladder wall thickening, accounting for underdistention. Pelvic Nodes: No enlarged lymph nodes. Miscellaneous: No inguinal hernias are seen. Bones: No aggressive osseous abnormality. IMPRESSION: Ascending colonic mass with associated mesenteric adenopathy, including a suspicious central mesenteric node. No evidence of metastatic disease. Part solid nodule in the right lower lobe. This does not have an appearance of metastatic disease, more likely post infectious etiology or possibly low-grade pulmonary adenocarcinoma. Recommend close attention on follow-up. If this lesion persists on later studies, a pulmonology referral should be considered. Dictated by: Juma Coley M.D. on 04/15/2024 at 10:42 Approved by: Juma Coley M.D. on 04/15/2024 at 10:49
== END ==
LOC: CT 07:34
PROVIDERS: PCP Registered Nurse Diabetes Educator; Referring Provider Surgery; Visit Provider Surgery
DX: K63.89 Other specified diseases of intestine (principal); K42.9 Umbilical hernia without obstruction or gangrene; R59.0 Localized enlarged lymph nodes; R91.1 Solitary pulmonary nodule
CPT/HCPCS: 71260; 74177; Q9967

== ENCOUNTER 2024-05-03 06:32 | Inpatient (IN) | payer OTHER, SELFPAY ==
[2024-05-02 08:51] VITALS: BMI 27.4
[2024-05-03] VITALS (11 sets, daily range): BP systolic 80–130; BP diastolic 50–82; PULSE 58–88; RESP 14–18; TEMP 35.8–36.9; O2SAT 95–100; BMI 27.4
--- NOTE | 2024-05-03 | PATH_ITS ---
[facility] Accession Number: [id number] No. of containers..01 Tissue . 01 Material submitted: . colon - RIGHT COLON,APPENDIX,TERMINAL ILEUM . 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 Additional sessile serrated adenomas. . CASE SUMMARY - COLON AND RECTUM Specimen Procedure: Right hemicolectomy. Tumor Tumor site: Ascending colon, Histologic type: Mucinous adenocarcinoma. Histologic grade: G2, moderately differentiated. Tumor size: 9.9 cm in greatest dimension. Multiple primary sites: Not applicable. Tumor extent: Invades through muscularis propria into pericolonic tissue. Macroscopic tumor perforation: Not identified. Lymphovascular invasion: Not identified. Perineural invasion: Not identified. Tumor budding score: Low. Treatment effect: No known presurgical therapy. . Margins Margin status for invasive carcinoma: All margins negative for invasive carcinoma. Margin status for noninvasive tumor: All margins negative for dysplasia. Regional lymph nodes Regional lymph nodes present. All regional lymph nodes negative for tumor. Number of lymph nodes with tumor: 0. Number of lymph nodes examined: 35. Tumor deposits: Not identified. . Distant metastasis: Not applicable. . pTNM classification (AJCC 8th Edition): Modified classification: Not applicable. pT category: pT3 pN category: pN0 . Additionl findings: Sessile serrated adenomas. . Special studies: Immunohistochemical stains for DNA mismatch repair proteins were performed on the biopsy specimen ([id number]) with loss of MLH-1 and PMS-2 nuclear expression. Molecular studies for MLH-1 promotor methylation and BRAF V600E mutation can be performed upon request, if clinically indicated. [facility] 05/09/2024 1434 Local . 01 Comment: As part of routine quality assurance advisor, Dr. Hicks has reviewed sales representative public utilities slides from this case and agrees with the diagnosis of mucinous adenocarcinoma and the finding of a sessile serrated adenoma in the appendix. . 01 Electronically signed: . Gonzalo Vaughn MD, PhD, Pathologist NPI- [id number] . 01 Gross description: . Received in formalin with two identifiers and righht colon, appendix, terminal ileum, is a right hemicolectomy with the ileal and colonic margins stapled together in a loop. The ileum measures 6.3 cm in length by 1.9 cm in diameter while the colon measures 21.2 cm in length by 2.3 cm in average diameter with attached appendix 4.5 cm in length by 0.5 cm in diameter. A moderate amount of adipose is attached and covering most of the serosa. The visible serosa is melendez and wrinkled. The portion of adipose is wheatley, possibly consistent with previous tattoo ink across an area measuring 8.5 x 3.1 cm. The ileal margin is inked blue, the colon margin is inked black, and the mesenteric margin is inked green. A firm area of yellow fat is located adjacent to the aforementioned tattoo ink and is inked orange. The lumen contains green-brown mucoid material and a large sessile mass is located in the proximal ascending colon measuring 9.9 x 7.5 cm and nearly expands the circumference of the bowel. The mass is located 2.2 cm from the ileocecal valve and is widely free from all margins. The lesion extends through the wall and into the pericolonic fat, but does not grossly approach the serosa. The remaining mucosa has three melendez polypoid nodules located distal to the mass with the nearest measuring 1.5 cm from the mass. The polyps range from 0.4 to 0.6 cm in greatest dimension with no invasion identified. The remaining mucosa is pink-melendez and velvety with normal-appearing folds and no additional lesions identified. The robles average 0.3 cm thick with no diverticula identified. The appendix has melendez unremarkable serosa with a patent lumen that averages 0.1 cm in diameter. The robles average 0.2 cm thick with no perforation or lesions identified. Palpation reveals 36 wheatley to melendez lymph node candidates ranging from 0.2 to 1.1 cm in greatest dimension. . Electric Motor Repairer sections are submitted as follows: A1: Ileal margin en face. A2: Colon margin en face. A3: Mesenteric margin en face. A4: Mass to greatest extension. A5-A6: Mass to normal mucosa. A7: Three polyps. A8: Ileocecal valve. A9-A10: Unremarkable full thickness sections. A11: Appendix to include one-half of bisected distal tip and cross-sections. A12: Two differentially inked bisected lymph node candidates. A13: Two differentially inked bisected lymph node candidates. A14: Three intact lymph node candidates. A15: Four intact lymph node candidates. A16: Four intact lymph node candidates. A17: Four intact lymph node candidates. A18: Four intact lymph node candidates. A19: Five intact lymph node candidates. A20: Four intact lymph node candidates. A21: Four intact lymph node candidates. ([id number]) /[facility] 05/09/2024 1410 Local . 01 Pathologist provided ICD-10: C18.2, D12.1, D12.2 . 01 CPT . 296872 Specimen Comment: A courtesy copy of this report has been sent to [phone] Performed at: [address] [address], [place], [place] [id number] MD Vivek Hicks MD Phone: [phone]
[2024-05-03] MEDS: LACTATED RINGERS 1,000 ML 42 ML IV ×2 (07:21→08:47)
[2024-05-03] MEDS: ACETAMINOPHEN 325 MG TABLET 975 MG PO (07:21)
[2024-05-03] MEDS: AMPICILLIN/SULBACTAM 3 GM 3 GM in SODIUM CHLORIDE 0.9% 100 ML IV ×2 (08:09→10:09)
--- NOTE | 2024-05-03 08:11 | PM.PREOP ---
Pre-operative Note COVID-19 COVID-19 status: Not tested Interval Note History & Physical reviewed/Exam performed by Physician: Yes Changes to H&P: No ASA Class (for procedural sedation): II
--- NOTE | 2024-05-03 08:23 | SUR.OPER ---
Supine on padded OR bed, head on pillow, arms padded and tucked at sides, legs uncrossed, safety belt at thigh, tape over blanket over lower legs . Footboard secured at patient's feet
[2024-05-03] MEDS: BUPIVACAINE LIPOSOME 266 MG/20 ML VIAL INJ (08:32)
[2024-05-03] MEDS: BUPIVACAINE 0.5% (PF) 30 ML, EPINEPHrine 0.15 MG INJ (08:33)
--- NOTE | 2024-05-03 10:59 | PM.OP.1 ---
Operative Date/Time/Diagnoses Date of procedure: 05/03/24 Time of procedure: 10:59 Pre-op diagnosis: Right colon cancer Post-op diagnosis: same Procedure & Clinicians Procedure: Laparoscopic-assisted right hemicolectomy Same procedure as scheduled: Yes Surgeon: Manoj Borden Motor Vehicle Assembler: Chris Tran Anesthesia Type: General Operative Notes Procedure in detail: Operation: Laparoscopic assisted right hemicolectomy Surgeon: Soumya ROBERT Motor Vehicle Assembler: Chris VILLAVICENCIO provided assistance with exposure, retraction and closure of incisions. Anesthesia: General endotracheal anesthesia The patient is a 63-year-old woman who presented with an ascending colon cancer. She was consented for a laparoscopic assisted right hemicolectomy. Unasyn was administered. The patient was brought to the operating room and placed on the table in the supine position. General endotracheal anesthesia was induced. A Jensen catheter was placed. The abdomen was prepped and draped in the usual fashion and a time-out was performed. A 1 cm supraumbilical incision was created. Dissection was carried down to the fascia which was scored in the midline with cautery. The posterior sheath was grasped between 2 tonsil clamps and divided sharply with Metzenbaum scissors. The peritoneum was pierced with a Peon clamp. A Robert port was placed and the abdomen was insufflated to 15 mmHg. The camera was inserted and there was no evidence of any injury from the entry. 5 mm ports were placed in the right upper quadrant, left upper quadrant, left lower quadrant and right lower quadrant positions under direct vision. We explored the abdomen. Tattoo ink was seen and the mass was visible in the mid ascending colon. We started dissecting the omentum off of the proximal transverse colon. We carefully dissected the right transverse mesocolon off of duodenum staying in the natural cleavage plane. We then took down the hepatic flexure and the right colon in the same plane. The plane between the ascending colon mesentery and Gerota's fascia was somewhat obscured by the desmoplastic reaction near the tumor. We then mobilized the cecum and the mesentery to the terminal ileum off of the sidewall. The ureter was seen and protected. Once the bowel was sufficiently mobilized we removed the laparoscopic equipment and created a 7 cm supraumbilical incision. An Tramaine retractor was placed into the wound and the right colon was exteriorized. We then created mesenteric windows along the mesenteric border of terminal ileum and another along the proximal transverse colon just proximal to the right branch of the middle colic artery. We then lined up the terminal ileum and transverse colon and a 3-0 silk stitch was placed at the crotch. Blue towels were placed around the bowel and enterotomies were created. A [id number]-[id number] functional end-to-end anastomosis was created using the 75 mm linear SHANNAN stapler with blue loads. The LigaSure was used to take down the mesentery. The right colic and ileocolic pedicle were doubly tied with an 0 silk tie. Multiple interrupted 3-0 silk sutures were used to imbricate the staple line. The mesenteric defect was closed with a running 2-0 Vicryl. The anastomosis appeared well perfused and patent and allowed to fall back into the right abdomen. We irrigated the abdomen with 2 L of warm saline. We then transition to a clean closure and injected Exparel into the plane above and below the fascia. The fascia was then closed with a running 0 PDS suture supported by multiple interrupted 0 Vicryl internal retention sutures.. The skin incisions were closed jeni. EBL: 30 mL Specimen: Terminal ileum, appendix, right colon and proximal transverse colon. Post-operative Condition: stable Disposition: PACU
[2024-05-03] MEDS: HYDROCODONE/ACET 5/325 TABLET 2 TAB PO (12:10)
[2024-05-03] MEDS: HYDROMORPHONE 0.5 MG INJ IV ×3 (13:30→18:59)
--- NOTE | 2024-05-03 16:27 | PC.NURSE ---
Patient arrived from PACU this afternoon to room 210 A&Ox4. VSS, afebrile weaned to RA. She has a midline incision to abdomen C/D/I and x4 bandaids c/d/i. Jensen in place draining adequate clear yellow urine. IVF LR at 100 ml/hr, oriented to room, admission assessment completed, bed alarm on, call light in reach, frequent monitoring, continuous pulse ox. She reports pain to abdomen 4-7/ 10 well controlle with prn pain medications. BS hypoactive. She denies n/v. Continuous monitoring.
[2024-05-03] MEDS: SODIUM CHLORIDE 0.9% FLUSH 10 ML IV (18:59)
[2024-05-03] MEDS: HYDROCODONE/ACET 5/325 TABLET 1 TAB PO (23:00)
[2024-05-04 00:19] VITALS: BP 146/80; PULSE 110; RESP 17; TEMP 36.1; O2SAT 94
--- NOTE | 2024-05-04 02:38 | PC.NURSE ---
Patient is alert and oriented. Breath sounds CTA with RA sat of 98%. HRR with rate of 69 at time of assessment. Denied nausea. BT present in RUQ of abdomen and hypoactive other quadrants but did start passing flatus. Indwelling catheter is patent; patient aware this will be removed at 0600. Is able to turn herself in bed. With encouragement was agreeable to get up and ambulated in [facility] to [facility] nurses station and then down to just [facility] nurses station. Used walker and was slow but steady and was provided SBA. Abdominal pain mostly controlled; did have IV Dilaudid just prior to shift change and then received Vicodin at 2300 and has been mostly sleeping since that time. Dressing to midline abdomen is intact with quarter size amount shadow drainage. Bandaid dressings on either side of midline ABD are CDI. Wearing bilateral calf SCD's. Fall risk score is moderate but calls for assistance appropriately so bed alarm is not in use at this time.
[2024-05-04] MEDS: HYDROCODONE/ACET 5/325 TABLET 1 TAB PO ×5 (03:16→19:56)
[2024-05-04] MEDS: IBUPROFEN 600 MG TABLET PO ×2 (06:39→23:39)
[2024-05-04 06:57] LABS: Add Manual Diff / Slide Review NO; Basophils Absolute Auto 0 /uL (0-100); Basophils Percent Auto 0.3 % (0-2); Eosinophils Absolute Auto 0 /uL (0-450); Eosinophils Percent Auto 0.2 % (2-4); Hematocrit 29.2 % (36-46); Lymphocytes Absolute Auto 1700 /uL (1100-4500); Lymphocytes Percent Auto 15.1 % (25-40); Mean Corpuscular HGB Conc 34.3 % (30-36); Mean Corpuscular Hemoglobin 29.6 PG (26-34); Mean Corpuscular Volume 86.2 fL (80-100); Monocytes Absolute Auto 600 /uL (0-900); Monocytes Percent Auto 5.2 % (3-14); Neutrophils Absolute Auto 8600 /uL (1500-7000); Neutrophils Percent Auto 79.2 % (50-75); Platelet Count 461 X10^3/uL (150-400); Red Blood Cell Count 3.39 X10^6/uL (4.0-5.2); Red Cell Distribution Width 14.6 % (11.6-14.8); White Blood Cell Count 10.9 X10^3/uL (4.5-11.0)
[2024-05-04 07:05] LABS: BUN Creatinine Ratio 6.1 (6-22); Blood Urea Nitrogen 3 mg/dL (7-17); Calcium 8.3 mg/dL (8.4-10.2); Carbon Dioxide 26 mmol/L (22-32); Chloride 106 mmol/L (98-107); Estimated Glomerular Filt Rate > 60 mL/min (>60); Glucose 92 mg/dL (80-110); HEMOLYSIS < 15 (0-50); Potassium 3.6 mmol/L (3.4-5.1); Sodium 136 mmol/L (137-145)
[2024-05-04] MEDS: SODIUM CHLORIDE 0.9% FLUSH 10 ML IV ×2 (07:36→20:44)
[2024-05-04 08:26] VITALS: BP 127/72; PULSE 86; RESP 18; TEMP 36.3; O2SAT 100
--- NOTE | 2024-05-04 10:13 | PC.NURSE ---
Day shift: Pt ambulated in halls at approx 1000. Tolerated well.
--- NOTE | 2024-05-04 10:24 | CM.DANOTE ---
Initial DCP Assessment Visit Note Reviewed the EMR and team rounds for pt's medical status and anticpated d/c needs. Met with pt and her Significant Other at bedside to introduce self and role, pt was found to be sitting upright in bed, smiling, able to discuss her concerns/preferences for home d/c. She lives independently in her own home here in [place]. She shared that she has several friends/family members in her support network that are all helping her and will continue to be available for continued support/assistance after she discharges back home. She states that either a friend or her sister will plan to transport her back home once medically stable, likely tomorrow (). Payor: [facility] Attending: Dr. Borden Pt is a 63 year-old F post-op day 1 from a R-sided hemicolectomy. She had a screening colonoscopy done in March that was positive for colon cancer, and a cecal mass was found at that time. Pathology from 04/14/24 showed invasive colon cancer. Pathology from her surgery yesterday is pending, pt will plan to meet with Dr. Borden postoperatively once the pathology is available to discuss next steps. At this time, pt denies any d/c needs or resources from DCP. Will continue to follow her for any further evolving needs during her stay. Discharge Planning/Care Management CM Discharge Assessment Start: 05/04/24 10:21 Freq: Status: Active Protocol: Document 05/04/24 10:21 DPL (Rec: 05/04/24 10:24 DPL [id number]) Discharge Planning Assessment Assigned Reconciliation Clerk JACQUELYN Palmer Advance Directives? No History Provided By Patient,Medical Record Has Patient been admitted in last 30 No days? Prior Living Arrangements House Household Members significant other Type of transporation used prior to Drives own vehicle admit Independent with ADL's Yes Is patient alert and oriented? Yes Caregiver for Another No Comment No identified d/c needs at this time. Barriers to Discharge No Discharge Plan Home Transportation Arrangement Friend/family Referrals Initiated None needed Whiteboard Updated in Patient Room with Yes name and ext. # of Reconciliation Clerk Review Status In Process Please Provide Date Initial DC 05/04/24 Assessment Was Performed Pre-Anesthesia Assessment Start: 05/02/24 08:51 Freq: Status: Complete Protocol: Document 05/02/24 08:51 CAB (Rec: 05/02/24 09:20 [facility] [id number]) Pre-Anesthesia Assessment Preferred Name Marisol Patient Information Reviewed Via Phone Assessment Assessment Completed With Patient Primary Care Provider Roney Espana Seen Specialist in Last 12 Months Yes Specialist Seen Hand Candy Molder,General surgeon Primary Language Czech Single End Sewer Required No Height 160.02 cm Weight 70.307 kg Body Mass Index (BMI) 27.4 Hearing Ability Normal Visual Assist Contacts,Glasses Dentition Type Teeth, Natural Present Barriers to Learning None Hx Anesthesia Reactions No Hx Family Anesthesia Reaction No Hx Malignant Hyperthermia No Hx Blood Transfusions No Hx Blood Transfusion Reaction No Anesthesia Review Requested No Pneumatic Jack Operator No alcohol intake current alcohol intake frequency 0-2 drinks per day Smoking Status Never smoker Substance Use Type does not use Pain Present Pain Reported Comment Abdominal History of Falling (Recent or History of No ) Patient is completely paralyzed or No completely immobile Mental Status Oriented to own ability Is patient on oxygen? No Does patient have CHAVIS/SOB No Hx Sleep Apnea No CPAP/BIPAP use not prescribed Currently Taking a Beta Christen Yes: Metoprolol Can You Climb a Flight of Stairs Without Yes SOB Hx Chest Pain No Hx SOB No Hx Syncope or Dizziness No Anti-Coagulant Therapy No Has a Tray Drier Operator No Cardiac Testing No Hx Pacemaker/ICD No Pacemaker Rep Required? No Cardiac Clearance Received No Diet Type At Home Regular Dysphagia No Gastrointestinal Symptoms Abdominal Pain,Diarrhea Chronic UTI No Urinary Catheter Present No Hx Urinary Self Catheterization No Diabetes No Patient No Lactating No Presence of External or Internal Medical No Devices Received a COVID vaccine? Yes Received all doses? Yes Marital Status Lives With significant other Current Living Arrangements House Number of Floors (Floors) Two Floors Support System Significant Other Does the Patient Have Assistance After Yes Surgery Patient Discharge Plan Description Return Home Comment Pt advised 3 day length of stay per surgeon Feels Safe in Current Environment Yes Been Physically Hurt or Threatened By a No Person in Current Environment Do you have thoughts of harming yourself None or others? Are you currently considering suicide? No Do you have a plan to hurt yourself or No Plan others? Do You Have Any Spiritual Beliefs That No May Affect Your HC Choices? Do You Have Any Cultural Practices That No May Affect Your HC Choices? Comment Latter Day Who Can We Speak to About Patient's Care Family, friends Identifying Code for Release of Patient Declines to issue Information Health Care Proxy/Next of Kin Daina Arzate (sister) Health Care Proxy Emergency Contact Name Javid De Leon (S.O.) Emergency Contact Advance Directives? No Power of Die Inspector No PAC Instructions Assistance for 24 hours post- op,Medications to take/avoid, No ETOH/petroleum product on skin DOS,NPO,Post-op transportation,Pre-op antibiotic,Pre-surgical wash, Sensory aids,Sturdy shoes/ comfortable clothes,Do not bring valuables and remove jewelry
--- NOTE | 2024-05-04 10:59 | P.PN_ITS ---
Subjective Subjective Date Patient Seen: 05/04/24 Time Patient Seen: 10:59 Interval history: Marisol is doing well today. She has passed some flatus and stool. She had her Jensen catheter removed this morning and she has voided. She has been up on her feet. Exam Vital Signs (past 8 hours): - 05/04/24 08:26 Temperature 97.4 F L Pulse Rate 86 Respiratory Rate 18 Blood Pressure 127/72 Pulse Oximetry 100 Oxygen Flow Rate 0 Oxygen Delivery Method Room Air Oxygen Flow Rate 0 Const General: No acute distress Resp Effort & Inspection: normal respiratory effort Objective Labs 05/04/24 06:20 05/04/24 06:20 Labs: Laboratory Results - last 24 hr 05/04/24 06:20 WBC 10.9 RBC 3.39 L Hgb 10.0 L Hct 29.2 L MCV 86.2 MCH 29.6 MCHC 34.3 RDW 14.6 Plt Count 461 H Neut % (Auto) 79.2 H Lymph % (Auto) 15.1 L [place] % (Auto) 5.2 Eos % (Auto) 0.2 L Baso % (Auto) 0.3 Neut # (Auto) 8600 H Lymph # (Auto) 1700 [place] # (Auto) 600 Eos # (Auto) 0 Baso # (Auto) 0 Sodium 136 L Potassium 3.6 Chloride 106 Carbon Dioxide 26 BUN 3 L Creatinine 0.49 L Estimated GFR > 60 BUN/Creatinine Ratio 6.1 Glucose 92 Calcium 8.3 L [facility] Medical History (Updated 05/02/24 @ 08:54 by Stacie Link RN) History of Mohs micrographic surgery for skin cancer Impaired fasting blood sugar Actinic keratosis Hypertension (~2014) Rosacea (Unknown) Colon polyps (07/2006) Surgical History History of back surgery (Unknown) Hx of section (Unknown) History of tonsillectomy Family History Brother CAD (coronary artery disease) Mother Breast cancer Grandmother Colon cancer Sister Diabetes mellitus Social History household members: significant other Smoking Status: Never smoker second hand exposure: No alcohol intake: current substance use type: does not use Assessment & Plan Assessment and plan (1) Colon cancer, ascending: Status: Acute Plan Doing well on postop day 1 following laparoscopic-assisted right hemicolectomy. We will advance diet to regular We will start Lovenox and resume home medications.
[2024-05-04] MEDS: ENOXAPARIN 40 MG/0.4 ML SYRINGE SUBCUT (11:34)
[2024-05-04 20:00] VITALS: BP 143/73; PULSE 78; RESP 18; TEMP 36.4; O2SAT 99
[2024-05-04 20:43] VITALS: BP 143/73; PULSE 78
[2024-05-04] MEDS: ATORVASTATIN 20 MG TABLET PO (20:43)
[2024-05-04] MEDS: METOPROLOL ER 50 MG TABLET 100 MG PO (20:43)
[2024-05-05] MEDS: HYDROCODONE/ACET 5/325 TABLET 1 TAB PO ×5 (00:04→21:37)
[2024-05-05 08:00] VITALS: BP 120/70; PULSE 62; RESP 16; TEMP 36.6; O2SAT 99
[2024-05-05] MEDS: ENOXAPARIN 40 MG/0.4 ML SYRINGE SUBCUT (08:13)
[2024-05-05] MEDS: SODIUM CHLORIDE 0.9% FLUSH 10 ML IV ×2 (08:14→21:38)
--- NOTE | 2024-05-05 08:53 | P.PN_ITS ---
Subjective Subjective Date Patient Seen: 05/05/24 Time Patient Seen: 08:53 Interval history: Marisol is doing well today. Tolerating her diet and pain is controlled. Exam Vital Signs (past 8 hours): - 05/05/24 08:00 Temperature 97.9 F Pulse Rate 62 Respiratory Rate 16 Blood Pressure 120/70 Pulse Oximetry 99 Oxygen Flow Rate 0 Oxygen Delivery Method Room Air Oxygen Flow Rate 0 Narrative Exam Narrative: Abdomen is soft Incision clean dry and intact Objective Labs 05/04/24 06:20 05/04/24 06:20 [facility] Medical History (Updated 05/02/24 @ 08:54 by Stacie Link RN) History of Mohs micrographic surgery for skin cancer Impaired fasting blood sugar Actinic keratosis Hypertension (~2014) Rosacea (Unknown) Colon polyps (07/2006) Surgical History History of back surgery (Unknown) Hx of section (Unknown) History of tonsillectomy Family History Brother CAD (coronary artery disease) Mother Breast cancer Grandmother Colon cancer Sister Diabetes mellitus Social History household members: significant other Smoking Status: Never smoker second hand exposure: No alcohol intake: current substance use type: does not use Assessment & Plan Assessment and plan (1) Colon cancer, ascending: Status: Acute Plan Doing well following laparoscopic-assisted right hemicolectomy Home today or tomorrow depending on how she does with her diet and pain control
--- NOTE | 2024-05-05 11:33 | CM.DPC ---
DCP Cont. Reviewed EMR and team rounds for status updates. Per Surgery, pt will be medically cleared for home d/c today, she has friends/family that will be transporting her. No further DCP needs indicated at this time.
[2024-05-05 20:00] VITALS: BP 120/72; PULSE 68; RESP 18; TEMP 37; O2SAT 100
[2024-05-05 21:37] VITALS: BP 120/67; PULSE 70
[2024-05-05] MEDS: METOPROLOL ER 50 MG TABLET 100 MG PO (21:37)
[2024-05-05] MEDS: ATORVASTATIN 20 MG TABLET PO (21:37)
[2024-05-06] MEDS: IBUPROFEN 600 MG TABLET PO (02:16)
[2024-05-06 08:00] VITALS: BP 110/72; PULSE 63; RESP 16; TEMP 36.6; O2SAT 98
--- NOTE | 2024-05-06 08:22 | PM.DS.1 ---
History of Present Illness History of Present Illness Chief complaint: INPT Discharge Providers Provider Date of admission: 05/03/24 06:32 Discharge Date: 05/06/24 Primary care physician: DENICE Estrada Discharge provider: Marcos Solis MD Summary Hospital Course Discharge Diagnosis: Colon cancer Hospital Course: Polyp underwent a laparoscopic-assisted right hemicolectomy May 03, 2024. Unremarkable postoperative course. Exam Vital Signs (past 8 hours): Oxygen Delivery Method Room Air Oxygen Flow Rate 0 Narrative Exam Narrative: General adult woman alert oriented no acute distress Abdomen soft nontender nondistended Objective Labs 05/04/24 06:20 05/04/24 06:20 PFS Medical History (Updated 05/02/24 @ 08:54 by Stacie Link RN) History of Mohs micrographic surgery for skin cancer Impaired fasting blood sugar Actinic keratosis Hypertension (~2014) Rosacea (Unknown) Colon polyps (07/2006) Surgical History History of back surgery (Unknown) Hx of section (Unknown) History of tonsillectomy Family History Brother CAD (coronary artery disease) Mother Breast cancer Grandmother Colon cancer Sister Diabetes mellitus Social History household members: significant other Smoking Status: Never smoker second hand exposure: No alcohol intake: current substance use type: does not use Discharge Plan Discharge Plan Patient Disposition: Home Provider Discharge Comment: -Okay to shower -Do not submerge wounds in water until seen in follow-up. -No lifting >10 lbs x 4 weeks. -Walking only for exercise for 4 weeks. -No driving while taking narcotics. Discharge orders & Medications Prescriptions: New acetaminophen [Tylenol] 325 mg capsule 650 mg PO QID PRN (Reason: pain) Qty: 60 0RF ibuprofen 200 mg tablet 400 mg PO Q6H Qty: 60 0RF Continued atorvastatin 20 mg tablet 20 mg PO BEDTIME Qty: 90 3RF multivitamin Capsule 1 cap PO DAILY metoprolol succinate 100 mg tablet extended release 24 hr 100 mg PO BEDTIME Discontinued metronidazole 500 mg tablet 1,000 mg PO .COMPLEX Qty: 6 0RF Rx Instructions: 1,000 mg PO 1 g PO; TAKE 2 tabs at 1PM, 2 PM, and 10 PM the day prior to surgery; Follow up/Referrals: Manoj Borden MD [Physician] - Roney Espana ARNP [Primary Care Provider] - Diet/Activity/Treatments Diet: Diet as Tolerated Skin/Wound/Dressing Care Report to your healthcare provider any signs of infection, such as:: chills, fever, increased pain, unusual drainage and unusual redness Visit Report/Discharge Packet Stand Alone Forms: Patient Portal/API, Stroke Signs & Symptoms Discharge Data Primary Care Provider: Roney Espana
--- NOTE | 2024-05-06 10:18 | CM.DPC ---
DCP Continued: Reviewed EMR and team rounds for pt's medical status. Per Provider Note, pt to discharge home today. No discharge needs identified at this time. Plan: Discharge orders are in, pt to discharge with family/friend to transport. LEXI Mueller
--- NOTE | 2024-05-06 11:30 | PC.NURSE ---
Patient is A&Ox4, VSS, afebrile on RA. She verbalizes pain well controlled and not requesting po medications this a.m. midline incision to abdomen KASSANDRA c/d/i. She tolerates breakfast well and reports a loose BM. She is cleared for discharge home today with follow up in 2 weeks with MD Borden. She acknowledges understanding of medications, activity, site care, s/sx of infection as well as follow up appointment. RN escorts her via w/ch with all of her belongings for discharge home today at 11 a.m. to private vehicle with a friend.
== END 2024-05-06 11:00 | disposition home or self-care (01) | DRG 331 ==
PROVIDERS: Admitting Provider Surgery; PCP Registered Nurse Diabetes Educator; Referring Provider Surgery; Visit Provider Surgery
PROC: 0DTE0ZZ Resection of Large Intestine, Open Approach (ICD-10-PCS; principal; 2024-05-03 07:45)
DX: C18.2 Malignant neoplasm of ascending colon (principal); Z80.0 Family history of malignant neoplasm of digestive organs
CPT/HCPCS: 36415; 44204; 80048; 82962; 85025; C9290; J0171; J0295; J0330; J1100; J1170; J1650; J1885; J2405; J2704; J3010; J3490

== ENCOUNTER → 2024-11-04 11:22 | Outpatient (CLI) | payer MEDICARE, OTHER, SELFPAY ==
[2024-05-03 12:11] VITALS: BMI 27.4
--- NOTE | 2024-11-04 | DI.CT.S_ITS ---
PROCEDURE: CT CHEST ABD PEL W CON INDICATIONS: MALIGNANT NEOPLASM OF ASCENDING COLON TECHNIQUE: After the administration of intravenous contrast, 5 mm thick sections acquired from the lung apices to the symphysis. 5 mm coronal and sagittal reformats were performed, with additional 7 mm MIP reformats through the lungs. For radiation dose reduction, the following was used: automated exposure control, adjustment of mA and/or kV according to patient size. COMPARISON: [facility], CT, CT CHEST ABD PEL W CON, 04/15/2024, 8:47. FINDINGS: Image quality: Excellent. CHEST: Lower Neck: No enlarged lymph nodes. Thyroid: No thyroid nodules which require sonographic follow up, per consensus guidelines. Axillae: No enlarged lymph nodes. Chest Wall: Unremarkable. Lungs and Pleura: No pneumothorax or pleural effusions. Stable 6-7 millimeter part solid nodule in the right lower lobe. Stable 8 millimeter ground-glass nodule in the left lower lobe (series 5, image 112). Heart: Heart size is normal. No pericardial effusion. Thoracic Vessels: The aorta and pulmonary arteries demonstrate normal size. Mediastinum and Kell: No enlarged lymph nodes. Esophagus: Patulous esophagus containing intraluminal contrast, probably reflux. ABDOMEN: Liver: No solid mass. Gallbladder: No radiopaque gallstones or wall thickening. Biliary ducts: No biliary dilation. Pancreas: No ductal dilation. Spleen: Size is within normal limits. Adrenal Glands: No adrenal nodules. Kidneys and Ureters: No hydronephrosis. No solid mass. No complex renal cystic lesion which requires follow up. Stomach and Bowel: Normal colonic caliber, without significant wall thickening. Right hemicolectomy. Peritoneum: No abnormal intraperitoneal fluid. No free air. Ventral Wall: No significant ventral hernia. Small umbilical hernia containing fat. Abdominal Nodes: No retroperitoneal or mesenteric adenopathy by size criteria. Vessels: Aorta and inferior vena cava are normal in size. PELVIS: Pelvic Organs: Unremarkable. Bladder: No bladder wall thickening, accounting for underdistention. Pelvic Nodes: No enlarged lymph nodes. Miscellaneous: No inguinal hernias are seen. Bones: No aggressive osseous abnormality. IMPRESSION: Interval right hemicolectomy. No measurable disease. 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 Consider pulmonology referral versus attention on follow-up. Dictated by: Juma Coley M.D. on 11/04/2024 at 16:16 Approved by: Juma Coley M.D. on 11/04/2024 at 16:20
[2024-11-04 12:09] LABS: Estimated Glomerular Filt Rate > 60 mL/min (>60)
== END ==
PROVIDERS: Radiology Diagnostic Radiology; PCP Registered Nurse Diabetes Educator; Referring Provider Internal Medicine; Visit Provider Internal Medicine
DX: C18.2 Malignant neoplasm of ascending colon (principal); R91.8 Other nonspecific abnormal finding of lung field; K42.9 Umbilical hernia without obstruction or gangrene; Z90.49 Acquired absence of other specified parts of digestive tract
CPT/HCPCS: 36415; 71260; 74177; 82565; Q9967

== ENCOUNTER → 2025-09-06 10:15 | Outpatient (CLI) | payer MEDICARE, OTHER, SELFPAY ==
[2024-05-03 12:11] VITALS: BMI 27.4
[2025-09-06 11:13] LABS: Hematocrit 41.4 % (36-46); Hemoglobin 14.2 g/dL (12.0-16.0); Mean Corpuscular HGB Conc 34.4 % (30-36); Mean Corpuscular Hemoglobin 34.1 PG (26-34); Mean Corpuscular Volume 99.3 fL (80-100); Platelet Count 266 X10^3/uL (150-400)
[2025-09-06 12:06] LABS: Alanine Aminotransferase 28 IU/L (<35); Albumin 4.8 g/dL (3.5-5.0); Albumin Globulin Ratio 1.7 (1.0-2.8); Alkaline Phosphatase 101 U/L (38-126); Blood Urea Nitrogen 10 mg/dL (7-17); Calcium 9.6 mg/dL (8.4-10.2); Carbon Dioxide 25 mmol/L (22-32); Chloride 104 mmol/L (98-107); Cholesterol 213 mg/dL (140-199); Estimated Glomerular Filt Rate > 60 mL/min (>60); Globulin 2.9 g/dL (1.7-4.1); Glucose 102 mg/dL (70-99); HDL Cholesterol 95 mg/dL (40-60); HEMOLYSIS < 15 (0-50); Potassium 4.6 mmol/L (3.4-5.1); Sodium 138 mmol/L (137-145); Total Protein 7.7 g/dL (6.3-8.2); Triglycerides 102 mg/dL (35-150)
[2025-09-06 12:39] LABS: TSH w/ Reflex to FT4 1.04 uIU/mL (0.47-4.68)
== END ==
PROVIDERS: PCP Registered Nurse Diabetes Educator; Referring Provider Registered Nurse Diabetes Educator; Visit Provider Registered Nurse Diabetes Educator
DX: I10 Essential (primary) hypertension (principal); E78.5 Hyperlipidemia, unspecified; R73.01 Impaired fasting glucose; C18.2 Malignant neoplasm of ascending colon
CPT/HCPCS: 36415; 80053; 80061; 84443; 85027